=== PATIENT | female | born 1985 | race African-American/Black ===

== ENCOUNTER 2022-03-01 08:42 | Emergency (ER) | payer MEDICAID ==
[~2022-03-01] VITALS: Ht 165.1 cm; Wt 74.8 kg
[2022-03-01 09:29] VITALS: BP 134/87
[2022-03-01] MEDS ORDERED: AZIT500T66 PO (09:47)
[2022-03-01] MEDS ORDERED: PRED20TA2 PO (09:47)
== END 2022-03-01 10:17 | disposition home or self-care (01) ==
LOC: ER 08:42
DX: J20.9 Acute bronchitis, unspecified (principal); J45.909 Unspecified asthma, uncomplicated
CPT/HCPCS: 71045